=== PATIENT | female | born 1950 | race Caucasian/White ===

== ENCOUNTER → 2017-05-08 | Outpatient (CLI) | payer MEDICARE ==
[~2017-05-08] MED LIST: LIDOCAINE 1%, 20ML ONE
== END | disposition home or self-care (01) ==
LOC: CFH 07:22
PROVIDERS: ATTEND Genetic Counselor, MS
DX: R92.2 Inconclusive mammogram (principal)
CPT/HCPCS: 19081; 19083; 38505; 76942; 88305; G0206; J3490

== ENCOUNTER → 2017-06-04 | Outpatient (CLI) | payer MEDICARE ==
[~2017-06-04] MED LIST changes: +ACET-709 PO; +ASPI-496 PO; +ATOR20TA9 PO; +CHOL2000 PO; +FENO160T PO; +FOLI0.8T2 PO; +INSU100I18 SQ; +INSU100I32 INJ; -LIDOCAINE 1%, 20ML ONE; +LOSA50TA6 PO; +SERT50TA5 PO; +TRAZ50TA18 PO
[2017-06-04 08:53] LABS: ASPARTATE AMINO TRANSFERASE 20 U/L (15-37); BLOOD UREA NITROGEN 16 mg/dL (7-18)
== END | disposition home or self-care (01) ==
LOC: STAR 07:37
PROVIDERS: ATTEND Surgery
DX: Z01.818 Encounter for other preprocedural examination (principal)
CPT/HCPCS: 36415; 80053; 93005

== ENCOUNTER 2017-06-13 07:10 | Day surgery (SDC) | payer MEDICARE ==
[2017-06-04 08:47] VITALS: BP 149/85
[~2017-06-13] VITALS: Ht 162.6 cm; Wt 81.8 kg
[~2017-06-13 07:10] MED LIST changes: +BUPIVACAINE/PF 0.5% ONE; +EPINEPHRINE 1 MG/ML, 1ML ONE
[2017-06-13] MEDS ORDERED: MIDAZOLAM 1 MG/ML, 2ML ONE (09:35)
[2017-06-13] MEDS ORDERED: FENTANYL PF 250 MCG/5ML ONE (09:35)
[2017-06-13] MEDS ORDERED: DEXAMETHASONE 4 MG/ML, 1ML ONE (09:37)
[2017-06-13] MEDS ORDERED: PROPOFOL 10 MG/ML, 20ML ONE (09:37)
[2017-06-13] MEDS ORDERED: ONDANSETRON 2MG/ML, 2ML ONE (09:37)
[2017-06-13] MEDS ORDERED: CEFAZOLIN 1,000 MG ONE (09:37)
[2017-06-13] MEDS ORDERED: LIDOCAINE 1%, 2ML ONE (09:58)
[2017-06-13] MEDS ORDERED: LACTATED RINGERS 1,000 ML IV SCH (10:17)
[2017-06-13] MEDS ORDERED: EXEN2PEN SC (10:23)
[2017-06-13] MEDS ORDERED: EPHEDRINE 50 MG/ML, 1ML ONE (10:27)
[2017-06-13] MEDS ORDERED: SUCCINYLCHOLINE 20 MG/ML, 10ML ONE (10:27)
[2017-06-13] MEDS ORDERED: PHENYLEPHRINE 10 MG/ML ONE (10:27)
[2017-06-13] MEDS ORDERED: ROCURONIUM 10 MG/ML,10ML ONE (10:27)
[2017-06-13] MEDS ORDERED: KETOROLAC 30 MG/1 ML ONE (10:27)
[2017-06-13] MEDS ORDERED: LIDOCAINE 1%, 2ML SQ PRN (10:30)
[2017-06-13] MEDS ORDERED: ISOSULFAN BLUE 10 MG/ML, 5ML IV ONE (10:40)
[2017-06-13] MEDS ORDERED: HEPARIN 1,000 UNITS/ML, 10ML ONE (10:58)
[2017-06-13] MEDS ORDERED: HEPARIN 5,000 UNITS/ML, 1ML ONE (10:58)
[2017-06-13] MEDS ORDERED: ACETAMINOPHEN 325 MG TABLET PO PRN (11:30)
[2017-06-13] MEDS ORDERED: MEPERIDINE/PF 25MG/0.5ML IVPush PRN (11:30)
[2017-06-13] MEDS ORDERED: ONDANSETRON 2MG/ML, 2ML IVPush PRN (11:30)
[2017-06-13] MEDS ORDERED: PROMETHAZINE 25 MG/ML, 1ML IV PRN (11:30)
[2017-06-13] MEDS ORDERED: HYDROmorphone 1 MG/ML, 1ML IV PRN (11:30)
[2017-06-13] MEDS ORDERED: DIAZEPAM 5 MG/ML, 2ML IVPush PRN (11:30)
[2017-06-13] MEDS ORDERED: hydrALAzine 20 MG/ML, 1ML IV PRN (11:30)
[2017-06-13] MEDS ORDERED: LABETALOL 5MG/ML, 20ML IV PRN (11:30)
[2017-06-13] MEDS ORDERED: OXYcodone 5 MG/5 ML ORAL.SOL UDC PO PRN (11:30)
[2017-06-13] MEDS ORDERED: FENTANYL PF 100 MCG/2ML IV PRN (11:30)
[2017-06-13] MEDS ORDERED: ALBUTEROL/IPRATROPIUM 2.5MG/0.5MG, 3 ML NPPB PRN (11:30)
[2017-06-13] MEDS ORDERED: MIDAZOLAM 1 MG/ML, 2ML IV PRN (11:30)
[2017-06-13] MEDS ORDERED: ACETAMINOPHEN 650 MG/20.3 ML UDC ONE (13:15)
[2017-06-13] MEDS ORDERED: OXYcodone 5 MG/5 ML ORAL.SOL UDC ONE (13:16)
[2017-06-13] MEDS ORDERED: LABETALOL 5MG/ML, 20ML ONE (13:19)
== END 2017-06-13 15:50 ==
LOC: SDC 07:10 → EDSTATUS 11:00 → OUT 15:50
PROVIDERS: ATTEND Surgery
DX: Z45.2 Encounter for adjustment and management of vascular access device (principal); C50.912 Malignant neoplasm of unspecified site of left female breast; E78.5 Hyperlipidemia, unspecified; I10 Essential (primary) hypertension; E11.9 Type 2 diabetes mellitus without complications; Z98.890 Other specified postprocedural states; Z88.8 Allergy status to other drugs, medicaments and biological substances
CPT/HCPCS: 19125; 19281; 36561; 38525; 38792; 71010; 76098; 77001; 82962; 88305; 88307; 88329; 88341; 88342; A9541; C1788; J0171; J0330; J0690; J1100; J1644; J1885; J2250; J2370; J2405; J2704; J3010; J3490; J7120; G0461

== ENCOUNTER → 2017-07-02 | Outpatient (CLI) | payer MEDICARE ==
[~2017-07-02] MED LIST changes: -BUPIVACAINE/PF 0.5% ONE; -EPINEPHRINE 1 MG/ML, 1ML ONE; +EXEN2PEN SC
== END | disposition home or self-care (01) ==
LOC: RAD 15:12
PROVIDERS: ATTEND Genetic Counselor, MS
DX: R91.8 Other nonspecific abnormal finding of lung field (principal); J81.1 Chronic pulmonary edema; M25.78 Osteophyte, vertebrae
CPT/HCPCS: 71275

== ENCOUNTER → 2017-07-17 | Outpatient (CLI) | payer MEDICARE | END | disposition home or self-care (01) | LOC: CVU 09:45 | PROVIDERS: ATTEND Internal Medicine Hematology & Oncology | DX: I05.8 Other rheumatic mitral valve diseases (principal); I10 Essential (primary) hypertension; E78.5 Hyperlipidemia, unspecified; E11.9 Type 2 diabetes mellitus without complications; C50.412 Malignant neoplasm of upper-outer quadrant of left female breast | CPT/HCPCS: 93306 ==

== ENCOUNTER 2017-07-25 12:00 | Day surgery (SDC) | payer MEDICARE ==
[2017-07-19 13:31] VITALS: BP 135/80
[~2017-07-25] VITALS: Ht 162.6 cm; Wt 85.5 kg
[~2017-07-25 12:00] MED LIST changes: +BUPIVACAINE/PF 0.5% ONE; +FENTANYL PF 250 MCG/5ML ONE; +MIDAZOLAM 1 MG/ML, 2ML ONE
[2017-07-25] MEDS ORDERED: LACTATED RINGERS 1,000 ML IV SCH (12:29)
[2017-07-25] MEDS ORDERED: FENTANYL PF 100 MCG/2ML IV PRN (12:30)
[2017-07-25] MEDS ORDERED: hydrALAzine 20 MG/ML, 1ML IV PRN (12:30)
[2017-07-25] MEDS ORDERED: LABETALOL 5MG/ML, 20ML IV PRN (12:30)
[2017-07-25] MEDS ORDERED: ACETAMINOPHEN 325 MG TABLET PO PRN (12:30)
[2017-07-25] MEDS ORDERED: ONDANSETRON 2MG/ML, 2ML IVPush PRN (12:30)
[2017-07-25] MEDS ORDERED: MEPERIDINE/PF 25MG/0.5ML IVPush PRN (12:30)
[2017-07-25] MEDS ORDERED: OXYcodone 5 MG/5 ML ORAL.SOL UDC PO PRN (12:30)
[2017-07-25] MEDS ORDERED: PROMETHAZINE 25 MG/ML, 1ML IV PRN (12:30)
[2017-07-25] MEDS ORDERED: HYDROmorphone 1 MG/ML, 1ML IV PRN (12:30)
[2017-07-25] MEDS ORDERED: PROPOFOL 10 MG/ML, 20ML ONE (13:43)
[2017-07-25] MEDS ORDERED: ONDANSETRON 2MG/ML, 2ML ONE (14:01)
[2017-07-25] MEDS ORDERED: KETOROLAC 30 MG/1 ML ONE (14:02)
[2017-07-25] MEDS ORDERED: ACETAMINOPHEN 650 MG/20.3 ML UDC ONE (14:49)
[2017-07-25] MEDS ORDERED: OXYcodone 5 MG/5 ML ORAL.SOL UDC ONE (14:49)
[2017-07-25] MEDS ORDERED: DEXAMETHASONE 4 MG/ML, 1ML ONE (16:11)
[2017-07-25] MEDS ORDERED: ROCURONIUM 10 MG/ML,10ML ONE (16:12)
[2017-07-25] MEDS ORDERED: CEFAZOLIN 1,000 MG ONE (16:12)
== END 2017-07-25 16:45 | disposition home or self-care (01) ==
LOC: OUT 12:00
PROVIDERS: ATTEND Surgery
DX: C50.912 Malignant neoplasm of unspecified site of left female breast (principal); E11.9 Type 2 diabetes mellitus without complications; I10 Essential (primary) hypertension; E78.5 Hyperlipidemia, unspecified; Z79.82 Long term (current) use of aspirin
CPT/HCPCS: 19301; 82962; 88307; J0690; J1100; J1885; J2250; J2405; J2704; J3010; J3490; J7120